=== PATIENT | female | born 1955 | race Two or more races ===

== ENCOUNTER 2016-08-19 12:56 | Emergency (ER) | payer MEDICAID ==
[~2016-08-19] VITALS: Ht 152.4 cm; Wt 64.4 kg
[~2016-08-19 12:56] MED LIST: ACET30TA15 PO; CYCL1TAB18 PO
[2016-08-19 13:19] VITALS: BP 159/90
[2016-08-19] MEDS ORDERED: KETOROLAC TROMETH 60MG/2ML VIAL IM ONE (15:00)
== END 2016-08-19 15:07 | disposition home or self-care (01) ==
LOC: ER 13:11
DX: S46.912A Strain of unspecified muscle, fascia and tendon at shoulder and upper arm level, left arm, initial encounter (principal); S46.911A Strain of unspecified muscle, fascia and tendon at shoulder and upper arm level, right arm, initial encounter; X58.XXXA Exposure to other specified factors, initial encounter; Y93.89 Activity, other specified; Y99.8 Other external cause status; Y92.89 Other specified places as the place of occurrence of the external cause
CPT/HCPCS: 96372; 99283; J1885

== ENCOUNTER 2017-01-27 09:04 | Emergency (ER) | payer MEDICAID ==
[~2017-01-27] VITALS: Ht 152.4 cm; Wt 63.5 kg
[2017-01-27 09:45] VITALS: BP 134/77
[2017-01-27] MEDS ORDERED: KETOROLAC TROMETH 60MG/2ML VIAL IM ONE (10:00)
== END 2017-01-27 10:37 | disposition home or self-care (01) ==
LOC: ER 09:04
DX: G89.29 Other chronic pain (principal); M54.9 Dorsalgia, unspecified; Z90.49 Acquired absence of other specified parts of digestive tract
CPT/HCPCS: 96372; 99283; J1885

== ENCOUNTER 2017-04-20 11:34 | Emergency (ER) | payer MEDICAID ==
[~2017-04-20] VITALS: Ht 152.4 cm; Wt 68.5 kg
[2017-04-20 11:45] VITALS: BP 160/87
[2017-04-20] MEDS ORDERED: KETOROLAC TROMETH 60MG/2ML VIAL IM ONE (12:15)
== END 2017-04-20 12:53 | disposition home or self-care (01) ==
LOC: ER 11:34
DX: G89.29 Other chronic pain (principal); M25.512 Pain in left shoulder; M25.511 Pain in right shoulder; M54.9 Dorsalgia, unspecified; Z79.899 Other long term (current) drug therapy; Z90.49 Acquired absence of other specified parts of digestive tract
CPT/HCPCS: 93005; 96372; 99283; J1885

== ENCOUNTER 2017-08-12 10:53 | Emergency (ER) | payer MEDICAID ==
[~2017-08-12] VITALS: Ht 152.4 cm; Wt 66.7 kg
[2017-08-12 12:25] VITALS: BP 156/85
[2017-08-12] MEDS ORDERED: KETOROLAC TROMETH 60MG/2ML VIAL IM ONE (13:00)
== END 2017-08-12 13:37 | disposition home or self-care (01) ==
LOC: ER 10:53
DX: G89.29 Other chronic pain (principal); M25.511 Pain in right shoulder; Z90.49 Acquired absence of other specified parts of digestive tract; Z79.899 Other long term (current) drug therapy
CPT/HCPCS: 96372; 99283; J1885

== ENCOUNTER 2018-05-03 14:55 | Emergency (ER) | payer MEDICAID ==
[~2018-05-03] VITALS: Ht 152.4 cm; Wt 63.5 kg
[2018-05-03 18:23] VITALS: BP 166/91
[2018-05-03] MEDS ORDERED: ACETAMINOPHEN/CODEINE#3 (300/30mg) TAB PO ONE (19:45)
[2018-05-03] MEDS ORDERED: BACLOFEN 10 MG TAB PO ONE (19:45)
== END 2018-05-03 20:06 | disposition home or self-care (01) ==
LOC: ER 14:55
DX: M62.838 Other muscle spasm (principal)

== ENCOUNTER 2019-04-18 12:16 | Emergency (ER) | payer MEDICAID ==
[~2019-04-18] VITALS: Ht 152.4 cm; Wt 68.0 kg
[2019-04-18 12:28] VITALS: BP 136/82
== END 2019-04-18 14:22 | disposition home or self-care (01) ==
LOC: ER 12:16
DX: M77.52 Other enthesopathy of left foot and ankle (principal); Z90.49 Acquired absence of other specified parts of digestive tract
CPT/HCPCS: 73630

== ENCOUNTER 2022-06-26 14:06 | Emergency (ER) | payer SELFPAY ==
[~2022-06-26] VITALS: Ht 152.4 cm; Wt 63.9 kg
[~2022-06-26 14:06] MED LIST changes: +CYCL-839 PO; -CYCL1TAB18 PO
[2022-06-26 15:43] VITALS: BP 144/69
[2022-06-26] MEDS ORDERED: guaiFENesin-DM 100/10mg/5ml SYR PO ONE (15:45)
[2022-06-26] MEDS ORDERED: AZITTAB PO ×2 (17:17→17:19)
[2022-06-26] MEDS ORDERED: PROM1SOL4 PO ×2 (17:17→17:19)
== END 2022-06-26 17:57 | disposition home or self-care (01) ==
LOC: ER 14:06
DX: J06.9 Acute upper respiratory infection, unspecified (principal); Z90.49 Acquired absence of other specified parts of digestive tract; Z79.899 Other long term (current) drug therapy; Z20.822 Contact with and (suspected) exposure to COVID-19
CPT/HCPCS: 36415; 71046; 87426; 87804